=== PATIENT | female | born 2000 | race Caucasian/White ===

== ENCOUNTER 2020-07-07 02:09 | Emergency (ER) | payer OTHER ==
[~2020-07-07] VITALS: Ht 162.6 cm; Wt 54.4 kg
[2020-07-07] MEDS ORDERED: BIRTH CONTROL (02:17)
[2020-07-07] MEDS ORDERED: HYDROCODON-ACE1 EAC8 PO (05:44)
[2020-07-07] MEDS ORDERED: FLEXERIL PO (05:44)
[2020-07-07 05:52] VITALS: BP 112/62
== END 2020-07-07 05:52 | disposition home or self-care (01) ==
LOC: M.ERS 02:09
DX: S06.0X0A Concussion without loss of consciousness, initial encounter (principal); Z90.49 Acquired absence of other specified parts of digestive tract; W22.8XXA Striking against or struck by other objects, initial encounter; Y93.89 Activity, other specified; Y92.69 Other specified industrial and construction area as the place of occurrence of the external cause; Y99.0 Civilian activity done for income or pay